=== PATIENT | female | born 2005 | race Two or more races ===

== ENCOUNTER 2024-06-22 18:01 | Emergency (ER) | payer OTHER ==
[~2024-06-22] VITALS: Ht 157.5 cm; Wt 44.5 kg
[2024-06-22 21:58] LABS: HEMATOCRIT 37.8 % (36.0-45.00); HEMOGLOBIN 12.6 g/dL (12.0-15.00); MEAN CELL VOLUME 83.7 fL (80.00-100.00); MEAN CORPUSCULAR HGB CONC 33.4 g/dl (32.0-36.0); PLATELET COUNT 309 K/uL (150-450); RED BLOOD COUNT 4.51 M/uL (4.00-6.00); RED CELL DISTRIBUTION WIDTH 14.2 % (11.5-14.5)
== END 2024-06-23 02:27 | disposition home or self-care (01) ==
LOC: ER 18:04 → EMR PED 18:13
PROVIDERS: Emergency Medicine Pediatric Emergency Medicine
DX: J10.1 Influenza due to other identified influenza virus with other respiratory manifestations (principal); M54.9 Dorsalgia, unspecified; Z88.8 Allergy status to other drugs, medicaments and biological substances; Z20.822 Contact with and (suspected) exposure to COVID-19